=== PATIENT | female | born 1940 | race Caucasian/White ===

== ENCOUNTER 2016-03-26 12:32 | Emergency (ER) | payer MEDICARE, BC ==
[~2016-03-26] VITALS: Ht 162.6 cm; Wt 72.0 kg
[2016-03-26 12:36] VITALS: Ht 162.6 cm; Wt 72.0 kg
[2016-03-26 12:47] LABS: BASOPHIL # 0.1 10^3/ul (0.0-0.1); CONDITION 1; EOSINOPHILS # 0.2 10^3/ul (0.0-0.5); EOSINOPHILS % 2.6 % (0.0-7.0); HEMATOCRIT 40.3 % (37.0-47.0); HEMOGLOBIN 13.8 g/dl (12.0-16.0); LH ANALYZER COMMENTS 1; LYMPHOCYTES % 25.7 % (15.0-51.0); MEAN CORPUSCULAR HEMOGLOBIN 30.3 pg (29.0-33.0); MEAN CORPUSCULAR HGB CONC 34.3 g/dl (32.0-37.0); MEAN CORPUSCULAR VOLUME 88.5 fl (82.0-101.0); MEAN PLATELET VOLUME 7.3 fl (7.4-10.4); MONOCYTE # 0.6 10^3/ul (0.3-0.9); MONOCYTES % 8.1 % (0.0-11.0); NEUTROPHIL # 4.9 10^3/ul (1.6-7.5); NEUTROPHILS % 62.6 % (39.0-77.0); PLATELET COUNT 202 10^3/UL (140-440); RED BLOOD COUNT 4.55 10^6/ul (4.20-5.40); RED CELL DISTRIBUTION WIDTH 14.9 % (11.5-14.5); UNCORRECTED WBC 7.9 10^3/ul (4.8-10.8); WHITE BLOOD COUNT 7.9 10^3/ul (4.8-10.8)
--- NOTE | 2016-03-26 12:51 | RADRPT ---
PROCEDURE: Noncontrast CT Head. CLINICAL INDICATION: Code stroke. Acute neurologic deficit. TECHNIQUE: Noncontrast CT of the head was obtained. The administered radiation dose was CTDI vol = 45.01 mGy, DLP = 630.2 mGy-cm. COMPARISON: There are no similar studies submitted for comparison. FINDINGS: There is mild generalized cerebral volume loss. There is minimal periventricular hypoattenuation suggesting chronic microvascular ischemic changes. There are mild to moderate vascular calcifications within the intracranial carotid arteries. There is no loss of almendarez-white differentiation to suggest acute territorial infarction. There is no acute intracranial hemorrhage or extra-axial fluid collection. There is no mass effect. No midline shift is identified. The orbits are within normal limits. The paranasal sinuses are well aerated. No destructive osseous lesion is identified. There is a subcentimeter left parietal subcutaneous les ion which is indeterminate but may represent a sebaceous cyst. IMPRESSION: 1. No loss of almendarez-white differentiation to suggest acute territorial infarction. Consider CTA of t he head/neck or noncontrast MRI of the brain as clinically warranted. 2. No acute intracranial hemorrhage or extra-axial fluid collection. 3. Mild generalized cerebral volume loss. 4. Minimal chronic microvascular ischemic changes. Further findings as detailed above. These findings were discussed with Dr. Loretta Casiano at 12:49 p.m. on March 26, 2016. RPTAT: PP .Percy Storm MD, Date Time Electronically viewed and signed by .Percy Storm MD, on 03/26/2016 12:50 .F/
[2016-03-26 12:56] LABS: CHLORIDE 105 mmol/L (97-110); POTASSIUM 4.2 mmol/L (3.5-5.1); SODIUM 145 mmol/L (135-144)
[2016-03-26 12:59] LABS: ANION GAP 15 (8-16); CARBON DIOXIDE 29 mmol/L (21-31); CREATININE 0.62 mg/dl (0.44-1.00)
[2016-03-26 13:00] LABS: BLOOD UREA NITROGEN 19 mg/dl (7-20); CALCIUM 9.5 mg/dl (8.4-10.2); GLUCOSE 99 mg/dl (70-220)
[2016-03-26] MEDS ORDERED: BENA20TA48 PO (13:04)
[2016-03-26] MEDS ORDERED: ATEN-51 PO (13:04)
--- NOTE | 2016-03-26 13:04 | RADRPT ---
PROCEDURE: XR Chest 1 View. CLINICAL INDICATION: Shortness of breath, stroke TECHNIQUE: AP view of the chest were obtained. COMPARISON: None. FINDINGS: The heart size is within normal limits. Calcified atherosclerosis is noted in the aorta. Lungs are hyperexpanded. No consolidations are identified. No pneumothorax is seen. Osseous structures are i ntact. IMPRESSION: Calcified atherosclerosis in the aorta. Hyperexpanded, clear lungs. RPTAT: AA .Lucian Chairez MD, Date Time Electronically viewed and signed by .Lucian Chairez MD, on 03/26/2016 13:03 .P/
[2016-03-26] MEDS ORDERED: LEVO75TA65 PO ×2 (13:05→13:07)
[2016-03-26 13:09] LABS: INR 0.94; PROTIME 12.6 Sec (12.2-14.2)
[2016-03-26 13:14] LABS: TROPONIN-I < 0.012 ng/ml (0.00-0.12)
[2016-03-26] MEDS ORDERED: PRED20TA PO (13:18)
[2016-03-26] MEDS ORDERED: VALA10004 PO (13:18)
--- NOTE | 2016-03-26 13:23 | STROKE ---
Date/Time of Note Date/Time of Note DATE: 03/26/16 TIME: 13:21 Patient Information General Patient location: emergency Arrival Date Age 75 Gender female Weight 72 kg POC Glucose Glucose Result Bedside Glucose - 72 Hours Test 03/26/16 13:04 Bedside Glucose 94mg/dL (70-220) Vital Signs Vital Signs Vital Signs Date Time Temp Pulse Resp B/P Pulse Ox O2 Delivery O2 Flow Rate FiO2 03/26/16 12:36 166/89 Patient History Current Medications Allergies: Coded Allergies: Sulfa (Sulfonamide Antibiotics) (Verified Allergy, Unknown, 03/26/16) Labs Hematology Labs Hematology Test 03/26/16 12:30 Basophils # 0.110^3/ul (0.0-0.1) Basophils % 1.0% (0.0-2.0) Blood Morphology Comment Eosinophils # 0.210^3/ul (0.0-0.5) Eosinophils % 2.6% (0.0-7.0) Hematocrit 40.3% (37.0-47.0) Hemoglobin 13.8g/dl (12.0-16.0) Lymphocytes # 2.010^3/ul (0.8-2.9) Lymphocytes % 25.7% (15.0-51.0) Mean Corpuscular Hemoglobin 30.3pg (29.0-33.0) Mean Corpuscular Hemoglobin Concent 34.3g/dl (32.0-37.0) Mean Corpuscular Volume 88.5fl (82.0-101.0) Mean Platelet Volume 7.3fl (7.4-10.4) Monocytes # 0.610^3/ul (0.3-0.9) Monocytes % 8.1% (0.0-11.0) Neutrophils # 4.910^3/ul (1.6-7.5) Neutrophils % 62.6% (39.0-77.0) Nucleated Red Blood Cells # 0.010^3/ul (0.0-0.0) Nucleated Red Blood Cells % 0.0/100WBC (0.0-0.0) Platelet Count 51063^3/UL (140-440) Red Blood Count 4.5510^6/ul (4.20-5.40) Red Cell Distribution Width 14.9% (11.5-14.5) White Blood Count 7.910^3/ul (4.8-10.8) Chemistry Labs Chemistry Test 03/26/16 12:30 03/26/16 13:04 Anion Gap 15 (8-16) Blood Urea Nitrogen 19mg/dl (7-20) Calcium Level 9.5mg/dl (8.4-10.2) Carbon Dioxide Level 29mmol/L (21-31) Chloride Level 105mmol/L (97-110) Creatinine 0.62mg/dl (0.44-1.00) Glucose Level 99mg/dl (70-220) Hemoglobin A1c 6.0% (0-5.9) Potassium Level 4.2mmol/L (3.5-5.1) Sodium Level 145mmol/L (135-144) Troponin I < 0.012ng/ml (0.00-0.12) Bedside Glucose 94mg/dL (70-220) Coagulation Labs: Coagulation Test 03/26/16 12:30 Activated Partial Thromboplast Time 38.0Sec (25.0-35.0) INR International Normalized Ratio 0.94 Prothrombin Time 12.6Sec (12.2-14.2) Prothrombin Time Ratio 1.0 NIH Stroke Scale NIH Stroke Scale Date/Time Recorded DATE: 03/26/16 TIME: 13:21 Submitted By Stefan Farrell t-PA Imaging Review Date/Time Imaging Reviewed DATE: 03/26/16 TIME: 13:21 t-PA Administration Weight 72 kg Recommedation submitted by Stefan Farrell Recommendations Recommendation pt is [id number] hx htn p/w 1 hour of left face weakness and numbness bp 166/89 on exam, upper and lower facial weakness with eye closure and droop no other weakness noted no numbness or tingling no drift in UE a/p: L Low's palsy recommend steroids and acyclovir per local ED MD otilio farrell md neurocritical care and stroke STEFAN FARRELL MD Mar 26, 2016 13:23
--- NOTE | 2016-03-26 13:26 | ERD ---
ER Documentation Chief Complaint Date/Time DATE: 03/26/16 TIME: 13:21 Chief Complaint left sided weakness, facial droop and tingling HPI 75-year-old female with a history of hypertension presenting with left facial numbness and weakness that started half hour prior to arrival. She states that she knows her left eye was tearing more today than usual. Later she started noticing some tingling in her left face which made her concerned. She denies any focal extremity weakness or numbness. She denies any vision disturbance. She denies any ocular pain. No chest pain, palpitations, shortness of breath, difficulty walking, dizziness, recent infection. No earache or tinnitus. ROS All systems reviewed and are negative except as per history of present illness. Medications Home Meds Active Scripts Valacyclovir HCl (Valtrex) 1,000 Mg Tablet, 1000 MG PO TID for 7 Days, TAB Prov:MARIE MENDOZA MD 03/26/16 Prednisone* (Prednisone*) 20 Mg Tab, 60 MG PO DAILY for 7 Days, TAB Prov:MARIE MENDOZA MD 03/26/16 Reported Medications Levothyroxine Sodium* (Levoxyl*) 75 Mcg Tablet, 37.5 MCG PO ON SUNDAYS, #30 TAB 03/26/16 Levothyroxine Sodium* (Levoxyl*) 75 Mcg Tablet, 75 MCG PO DAILY EXCEPT SUNDAYS, #30 TAB 03/26/16 Atenolol* (Atenolol*) 25 Mg Tablet, 25 MG PO BID, #60 TAB 03/26/16 Benazepril Hcl* (Benazepril Hcl*) 20 Mg Tablet, 20 MG PO DAILY, #30 TAB 03/26/16 Allergies Allergies: Coded Allergies: Sulfa (Sulfonamide Antibiotics) (Verified Allergy, Unknown, 03/26/16) PMhx/Soc Medical and Surgical Hx: pt denies Surgical Hx Hx Cardiac Disorders: Yes (Hypertension) Hx Alcohol Use: No Hx Substance Use: No Hx Tobacco Use: No Smoking Status: Never smoker FmHx Family History: No diabetes Physical Exam Vitals Vital Signs Date Time Temp Pulse Resp B/P Pulse Ox O2 Delivery O2 Flow Rate FiO2 03/26/16 12:36 166/89 Physical Exam Const: Well-appearing, well-nourished, no distress Head: Atraumatic Eyes: Mild left conjunctival injection, tearing of left eye, Perrl, EOMI ENT: Normal External Ears, Nose and Mouth. Neck: Full range of motion. No meningismus. Resp: Clear to auscultation bilaterally Cardio: Regular rate and rhythm, no murmurs Abd: Soft, non tender, non distended. Normal bowel sounds Skin: No petechiae or rashes Back: No midline or flank tenderness Ext: No cyanosis, or edema Neuro: M/S: Alert and oriented 3 Face: EOMI, decreased sensation to the left face, the left facial droop, unable to completely close the left eye, decreased wrinkling of the left forehead when raising eyebrows. Cranial nerves otherwise intact except for cranial nerve VII Motor: Normal strength throughout Sensation: Normal sensation throughout Speech: Normal Cerebel: Normal coordination Normal gait Normal finger to nose DTR: 2+ and symmetric upper/lower extremities Psych: Normal Mood and Affect Result Diagram: 03/26/16 1230 03/26/16 1230 Results 24 hrs Laboratory Tests Test 03/26/16 12:30 03/26/16 13:04 Activated Partial Thromboplast Time 38.0Sec Anion Gap 15 Basophils # 0.110^3/ul Basophils % 1.0% Blood Morphology Comment Blood Urea Nitrogen 19mg/dl Calcium Level 9.5mg/dl Carbon Dioxide Level 29mmol/L Chloride Level 105mmol/L Creatinine 0.62mg/dl Eosinophils # 0.210^3/ul Eosinophils % 2.6% Glucose Level 99mg/dl Hematocrit 40.3% Hemoglobin 13.8g/dl Hemoglobin A1c 6.0% INR International Normalized Ratio 0.94 Lymphocytes # 2.010^3/ul Lymphocytes % 25.7% Mean Corpuscular Hemoglobin 30.3pg Mean Corpuscular Hemoglobin Concent 34.3g/dl Mean Corpuscular Volume 88.5fl Mean Platelet Volume 7.3fl Monocytes # 0.610^3/ul Monocytes % 8.1% Neutrophils # 4.910^3/ul Neutrophils % 62.6% Nucleated Red Blood Cells # 0.010^3/ul Nucleated Red Blood Cells % 0.0/100WBC Platelet Count 41940^3/UL Potassium Level 4.2mmol/L Prothrombin Time 12.6Sec Prothrombin Time Ratio 1.0 Red Blood Count 4.5510^6/ul Red Cell Distribution Width 14.9% Sodium Level 145mmol/L Troponin I < 0.012ng/ml White Blood Count 7.910^3/ul Bedside Glucose 94mg/dL Procedures/MDM EKG: Rate/Rhythm: Sinus bradycardia at 58 bpm QRS, ST, T-waves: No changes consistent w/ acute ischemia Impression: No evidence of ischemia or arrhythmia The patient presented with left-sided facial droop, most likely Low's palsy. I have a low suspicion for intracranial hemorrhage, intracranial infection, or acute stroke. However given the patient's age and history of hypertension, a code stroke was activated. CT head was normal per radiology. I spoke with the neurologist on-call, who evaluated the patient and agrees that the patient most likely has Low's palsy. Labs were unremarkable. Explained the diagnosis to the patient and management plan. I provided her a copy of her lab results. I recommended follow-up with her primary care physician as well as an [employer] consultant. Prescription was given for Valtrex and prednisone and she was advised to buy artificial tears [id number]. Return precautions were discussed. Patient's blood pressure was elevated (>120/80) but appears stable without evidence of hypertension emergency or urgency. The patient was counseled about the risks of hypertension and urged to pursue outpatient monitoring and therapy within a week with their primary care physician. The patient was discharged in stable condition. Departure Diagnosis: Primary Impression: Low's palsy Condition: Stable Patient Instructions: Low's Palsy Additional Instructions: Follow-up with your regular doctor in 2-3 days. Also I would like you to follow -up with an [employer] consultant to monitor your eye as it is at risk for dryness. Return to the ER for any worsening symptoms. Buy artificial tears and use as needed in the left eye to prevent dryness. MARIE MENDOZA MD Mar 26, 2016 13:26
[2016-03-26 14:06] VITALS: BP 145/69; PULSE 64; RESP 14
== END 2016-03-26 19:04 | disposition home or self-care (01) ==
LOC: E/R 12:32
DX: G51.0 Bell's palsy (principal); I10 Essential (primary) hypertension; R40.2142 Coma scale, eyes open, spontaneous, at arrival to emergency department; R40.2252 Coma scale, best verbal response, oriented, at arrival to emergency department; R40.2362 Coma scale, best motor response, obeys commands, at arrival to emergency department
CPT/HCPCS: 36415; 70450; 71010; 80048; 82962; 83036; 84484; 85025; 85610; 85730; 93005